=== PATIENT | female | born 1950 | race African-American/Black ===

== ENCOUNTER 2017-02-03 01:06 | Observation (INO) | payer OTHER ==
[~2017-02-03] VITALS: Ht 160 cm; Wt 58.8 kg
[~2017-02-03 01:06] MED LIST: AMBIEN10 MG PO; AMLODIPINE BESY10 MG PO; AMLODIPINE BESYL5 MG PO; ATARAX,VISTARIL50 MG PO; B-121000 MC2 PO; BACTROBAN OINTM22 GM TP; BENADRYL50 MG PO; BENTYL10 MG PO; COLACE100 MG PO; CYCLOBENZAPRINE10 MG PO; CYMBALTA30 MG PO; DAILY VALUE1 EACH PO; DAILY VITAMIN1 EAC8 PO; DICYCLOMINE HCL10 MG PO; DULOXETINE HCL30 MG PO; ENDOCET 5-3251 EACH PO; FIORICET 50-301 EACH PO; FLEXERIL10 MG PO; IBUPROFEN800 MG PO; IMITREX25 MG PO; INDOCIN50 MG PO; LEXAPRO10 MG PO; LOSARTAN POTASS50 MG PO; MEDROL DOSEPAK4 MG PO; MELOXICAM15 MG PO; MIRALAX17 GM PO; MOTRIN800 MG PO; NORCO 5/3251 TABLET PO; NORVASC5 MG PO; OMEPRAZOLE20 M2 PO; OMEPRAZOLE20 MG PO; ONE-A-DAY ESSE1 EAC1 PO; OXYCODONE-APAP1 EAC6 PO; PERCOCET 5/31 TABLET PO; PERCOCET 7.51 TABLET PO; PREDNISONE10 MG PO; PREDNISONE20 MG PO; PREMARIN VAGI42.5 GM VG; REGLAN10 MG PO; REMERON15 M2 PO; SENNA8.6 M1 PO; SERTRALINE HCL25 MG PO; SPIRIVA RESPIMAT4 GM IH; TRAMADOL HCL50 MG PO; TRAZODONE HCL50 MG PO; TYLENOL EXTRA500 MG PO; ULTRAM50 MG PO; VALIUM2 MG PO; VENTOLIN HFA18 GM IH; VITAMIN B12 100MCG PO; XARELTO15 MG PO; XARELTO20 MG PO; ZITHROMAX Z-PA250 MG PO; ZOFRAN4 MG PO; ZOLOFT50 MG PO; Zoloft PO
[2017-02-03 02:07] LABS: EOSINOPHIL (%) 0.3 % (0-5); HEMATOCRIT 38.2 % (36.0-46.0); IMMATURE GRANULOCYTE (%) 0.5 % (0.0-0.7); IMMATURE GRANULOCYTE COUNT 0.1 K/uL; INSTRUMENT ABS NEUTROPHIL CT 11.7 K/uL; LYMPHOCYTE COUNT 0.8 K/uL (1.0-2.8); MCH 27.7 PG (29.0-34.0); MCHC 30.6 G/DL (30.0-36.0); MCV 90.3 FL (83-99); MEAN PLAT.VOLUME 9.9 uM^3 (9.5-12.4); MONOCYTE COUNT 0.4 K/uL (0-0.8); NEUTROPHIL (%) 89.7 % (45-76); NEUTROPHIL COUNT 11.7 K/uL (1.8-6.4); PLATELET COUNT 263 K/uL (156-360); RBC DIS.WIDTH-CV 13.7 % (11.8-14.6); RED BLOOD COUNT 4.23 M/uL (3.80-5.20); WHITE BLOOD COUNT 13.1 K/uL (4.1-10.2)
[2017-02-03 02:15] LABS: ADD MIUA? YES; BILIRUBIN NEGATIVE; BLOOD SMALL; COLOR COLORLESS ((YELLOW)); GLUCOSE (STRIP) >=500; KETONES NEGATIVE; LEUKOCYTES TRACE; NITRITE NEGATIVE; PROTEIN (STRIP) 30; SPECIFIC GRAVITY 1.007 (1.000-1.030); UROBILINOGEN 0.2 MG/DL (0.2-1.0)
[2017-02-03 02:19] LABS: CHLORIDE 100 mEq/L (99-109); POTASSIUM 5.6 mEq/L (3.7-5.4); SODIUM 136 mEq/L (136-147)
[2017-02-03 02:19] LABS: BACTERIA NONE SEEN /HPF; EPITHELIAL CELLS RARE /HPF; HYALINE CASTS 0-5 /LPF; MUCUS NONE SEEN /LPF; RED BLOOD CELLS 0-5 /HPF (0-5); UCUL ADDED? NO; WHITE BLOOD CELLS 0-5 /HPF (0-5)
[2017-02-03 02:22] LABS: GLUCOSE 252 mg/dL (70-99)
[2017-02-03 02:23] LABS: ANION GAP 14 MEQ/L (2-14)
[2017-02-03 02:24] LABS: TOTAL BILIRUBIN 0.3 mg/dL (0.0-1.0)
[2017-02-03 02:25] LABS: ALKALINE PHOSPHATASE 75 IU/L (3-129); GFR ESTIMATE (CALCULATED) 36 mL/min/; SERUM ETHYL ALCOHOL < 10 mg/dL
[2017-02-03 02:25] LABS: ADD MEDTOX COMMENT Y; AMPHETAMINE NEGATIVE (500 ng/mL); BARBITURATES NEGATIVE (200 ng/mL); BENZODIAZEPINES NEGATIVE (150 ng/mL); COCAINE PRESUMPTIVE POSITIVE (150 ng/mL); INTERNAL CONTROLS VALID? YES; METHADONE NEGATIVE (200 ng/mL); METHAMPHETAMINE NEGATIVE (500 ng/mL); OPIATES (MORPHINE) PRESUMPTIVE POSITIVE (100 ng/mL); OXYCODONE NEGATIVE (100 ng/mL); PHENCYCLIDINE NEGATIVE (25 ng/mL); PROPOXYPHENE NEGATIVE (300 ng/mL); THC CANNABINOIDS NEGATIVE (50 ng/mL); TRICYCLIC ANTIDEPRESSANTS NEGATIVE (300 ng/mL)
[2017-02-03 02:27] LABS: UREA NITROGEN (BUN) 22 mg/dL (9-23)
[2017-02-03 02:30] LABS: TROP-I INTERPRETATION NEGATIVE; TROPONIN-I 0.06 ng/mL (0.0-0.30)
[2017-02-03 03:07] LABS: OPIATES QUANTITATIVE VALUE 0 NG/ML
[2017-02-03 04:09] LABS: SALICYLATE < 5.0 MG/DL (15-30)
[2017-02-03 09:20] LABS: MCH 27.4 PG (29.0-34.0); MCHC 30.9 G/DL (30.0-36.0); MCV 88.7 FL (83-99); PLATELET COUNT 221 K/uL (156-360); RBC DIS.WIDTH-CV 13.7 % (11.8-14.6); RBC DIS.WIDTH-SD 44.3 % (39-53); RED BLOOD COUNT 3.72 M/uL (3.80-5.20); WHITE BLOOD COUNT 9.7 K/uL (4.1-10.2)
[2017-02-03] MEDS ORDERED: XARELTO20 MG PO (09:28)
[2017-02-03 09:30] LABS: CHLORIDE 104 mEq/L (99-109); SODIUM 138 mEq/L (136-147)
[2017-02-03 09:32] LABS: GLUCOSE 108 mg/dL (70-99)
[2017-02-03 09:33] LABS: ANION GAP 6 MEQ/L (2-14)
[2017-02-03 09:34] LABS: TOTAL BILIRUBIN 0.3 mg/dL (0.0-1.0)
[2017-02-03 09:35] LABS: ALKALINE PHOSPHATASE 58 IU/L (3-129)
[2017-02-03 09:37] LABS: UREA NITROGEN (BUN) 18 mg/dL (9-23)
[2017-02-03 09:42] LABS: TROP-I INTERPRETATION NEGATIVE; TROPONIN-I 0.23 ng/mL (0.0-0.30)
[2017-02-03 09:43] LABS: GFR ESTIMATE (CALCULATED) 53 mL/min/
[2017-02-03 12:00] LABS: Estimated Average Glucose 111 mg/dL (70-123); HEMOGLOBIN A1c (GLYCOHEMOGLOB) 5.5 % HGB (Below 5.7)
[2017-02-03 14:23] VITALS: BP 117/72
[2017-02-03 16:23] LABS: TROP-I INTERPRETATION NEGATIVE; TROPONIN-I 0.16 ng/mL (0.0-0.30)
[2017-02-03 18:46] LABS: METH RESISTANT S AUREUS PCR POSITIVE (NEGATIVE)
[2017-02-03 18:52] LABS: PROBE CHECK PASS
[2017-02-03 20:00] VITALS: BP 140/80
[2017-02-04] VITALS: BP 123/80
[2017-02-04 07:38] VITALS: BP 107/64
[2017-02-04 09:29] LABS: EOSINOPHIL (%) 4.6 % (0-5); EOSINOPHIL COUNT 0.2 K/uL (0-0.3); IMMATURE GRANULOCYTE (%) 0.2 % (0.0-0.7); INSTRUMENT ABS NEUTROPHIL CT 1.9 K/uL; LYMPHOCYTE COUNT 1.6 K/uL (1.0-2.8); MCH 27.2 PG (29.0-34.0); MCHC 30.6 G/DL (30.0-36.0); MCV 88.8 FL (83-99); MEAN PLAT.VOLUME 10.3 uM^3 (9.5-12.4); MONOCYTE (%) 8.5 % (3-12); MONOCYTE COUNT 0.4 K/uL (0-0.8); NEUTROPHIL (%) 46.9 % (45-76); NEUTROPHIL COUNT 1.9 K/uL (1.8-6.4); PLATELET COUNT 186 K/uL (156-360); RBC DIS.WIDTH-CV 13.8 % (11.8-14.6); RBC DIS.WIDTH-SD 44.5 % (39-53); RED BLOOD COUNT 3.49 M/uL (3.80-5.20)
[2017-02-04 09:30] LABS: WHITE BLOOD COUNT 4.1 K/uL (4.1-10.2)
[2017-02-04 10:00] LABS: ANION GAP 6 MEQ/L (2-14); CHLORIDE 109 MEQ/L (99-109); GFR ESTIMATE (CALCULATED) > 59 mL/min/; GLUCOSE 81 mg/dL (70-99); POTASSIUM 3.8 MEQ/L (3.7-5.4); SAMPLE HEMOLYSIS CHECK 0; SAMPLE ICTERIC CHECK 0; SAMPLE LIPEMIA CHECK 0; SODIUM 139 MEQ/L (136-147); UREA NITROGEN (BUN) 8 mg/dL (9-23)
[2017-02-04 11:33] VITALS: BP 115/75
== END 2017-02-04 13:57 | disposition home or self-care (01) ==
LOC: EME 01:06 → EDOF 05:04 → 5WEST 05:04 → EDOF 05:04 → 5WEST 14:08
PROVIDERS: Emergency Medicine; Internal Medicine
DX: T40.1X1A Poisoning by heroin, accidental (unintentional), initial encounter (principal); T40.4X1A Poisoning by other synthetic narcotics, accidental (unintentional), initial encounter; T40.5X1A Poisoning by cocaine, accidental (unintentional), initial encounter; N17.9 Acute kidney failure, unspecified; Z86.711 Personal history of pulmonary embolism; Z79.01 Long term (current) use of anticoagulants; I10 Essential (primary) hypertension; G89.29 Other chronic pain; K21.9 Gastro-esophageal reflux disease without esophagitis; J44.9 Chronic obstructive pulmonary disease, unspecified; E87.5 Hyperkalemia; R73.9 Hyperglycemia, unspecified; G43.909 Migraine, unspecified, not intractable, without status migrainosus; F31.9 Bipolar disorder, unspecified; F41.1 Generalized anxiety disorder; F11.10 Opioid abuse, uncomplicated; F14.10 Cocaine abuse, uncomplicated; R09.02 Hypoxemia
CPT/HCPCS: 71010; 80048; 80053; 81003; 83036; 84484; 84999; 85025; 85027; 87641; 93005; 94640; 94640 76; 99202; 99281; 99285; G0378; G0480; J2310; J7030

== ENCOUNTER 2017-02-26 22:47 | Inpatient (IN) | payer OTHER ==
[~2017-02-26] VITALS: Ht 160 cm; Wt 52.5 kg
[2017-02-26 23:21] LABS: ADD MIUA? YES; BILIRUBIN NEGATIVE; BLOOD SMALL; COLOR YELLOW ((YELLOW)); GLUCOSE (STRIP) NEGATIVE; KETONES NEGATIVE; LEUKOCYTES LARGE; NITRITE NEGATIVE; PROTEIN (STRIP) NEGATIVE; SPECIFIC GRAVITY 1.006 (1.000-1.030); UROBILINOGEN 0.2 MG/DL (0.2-1.0)
[2017-02-26 23:30] LABS: ADD MEDTOX COMMENT Y; AMPHETAMINE NEGATIVE (500 ng/mL); BARBITURATES NEGATIVE (200 ng/mL); BENZODIAZEPINES NEGATIVE (150 ng/mL); COCAINE PRESUMPTIVE POSITIVE (150 ng/mL); INTERNAL CONTROLS VALID? YES; METHADONE NEGATIVE (200 ng/mL); METHAMPHETAMINE NEGATIVE (500 ng/mL); OPIATES (MORPHINE) NEGATIVE (100 ng/mL); OXYCODONE PRESUMPTIVE POSITIVE (100 ng/mL); PHENCYCLIDINE NEGATIVE (25 ng/mL); PROPOXYPHENE NEGATIVE (300 ng/mL); THC CANNABINOIDS NEGATIVE (50 ng/mL); TRICYCLIC ANTIDEPRESSANTS NEGATIVE (300 ng/mL)
[2017-02-26 23:44] LABS: BACTERIA 2+ /HPF; EPITHELIAL CELLS 2+ /HPF; MUCUS NONE SEEN /LPF; WHITE BLOOD CELLS TNTC /HPF (0-5)
[2017-02-27 00:10] LABS: CHLORIDE 106 mEq/L (99-109); SODIUM 136 mEq/L (136-147)
[2017-02-27 00:11] LABS: GLUCOSE 110 mg/dL (70-99); HEMATOCRIT 27.5 % (36.0-46.0); MCH 27.7 PG (29.0-34.0); MCHC 33.1 G/DL (30.0-36.0); MEAN PLAT.VOLUME 10.7 uM^3 (9.5-12.4); PLATELET COUNT 222 K/uL (156-360); RBC DIS.WIDTH-CV 14.3 % (11.8-14.6); RBC DIS.WIDTH-SD 43.5 % (39-53); RED BLOOD COUNT 3.28 M/uL (3.80-5.20)
[2017-02-27 00:12] LABS: MCV 83.8 FL (83-99); WHITE BLOOD COUNT 12.1 K/uL (4.1-10.2)
[2017-02-27 00:13] LABS: ANION GAP 10 MEQ/L (2-14)
[2017-02-27 00:15] LABS: GFR ESTIMATE (CALCULATED) 21 mL/min/
[2017-02-27 00:16] LABS: UREA NITROGEN (BUN) 52 mg/dL (9-23)
[2017-02-27 05:37] LABS: TROP-I INTERPRETATION NEGATIVE; TROPONIN-I < 0.01 ng/mL (0.0-0.30)
[2017-02-27 05:45] VITALS: BP 138/84
[2017-02-27 07:45] VITALS: BP 144/80
[2017-02-27 08:46] LABS: ANION GAP 9 MEQ/L (2-14); CHLORIDE 109 MEQ/L (99-109); GFR ESTIMATE (CALCULATED) 27 mL/min/; GLUCOSE 113 mg/dL (70-99); POTASSIUM 4.4 MEQ/L (3.7-5.4); SAMPLE HEMOLYSIS CHECK 0; SAMPLE ICTERIC CHECK 0; SAMPLE LIPEMIA CHECK 0; SODIUM 139 MEQ/L (136-147); UREA NITROGEN (BUN) 42 mg/dL (9-23)
[2017-02-27 09:18] LABS: MAGNESIUM 1.6 mg/dl (1.3-2.7); SERUM ETHYL ALCOHOL < 10 mg/dL
[2017-02-27 11:30] VITALS: BP 130/70
[2017-02-27 11:44] LABS: HEMATOCRIT 31.6 % (36.0-46.0); MCH 26.8 PG (29.0-34.0); MCHC 31.3 G/DL (30.0-36.0); MCV 85.6 FL (83-99); MEAN PLAT.VOLUME 10.3 uM^3 (9.5-12.4); PLATELET COUNT 237 K/uL (156-360); RBC DIS.WIDTH-CV 14.4 % (11.8-14.6); RBC DIS.WIDTH-SD 44.6 % (39-53); RED BLOOD COUNT 3.69 M/uL (3.80-5.20); WHITE BLOOD COUNT 9.4 K/uL (4.1-10.2)
[2017-02-27 14:02] LABS: TROP-I INTERPRETATION NEGATIVE; TROPONIN-I < 0.01 ng/mL (0.0-0.30)
[2017-02-27 15:30] VITALS: BP 127/81
[2017-02-27] MEDS ORDERED: LOSARTAN POTASS25 MG PO (16:14)
[2017-02-27] MEDS ORDERED: AMLODIPINE BESYL5 MG PO (16:14)
[2017-02-27] MEDS ORDERED: MELOXICAM15 MG PO (16:15)
[2017-02-27] MEDS ORDERED: ENDOCET 5-3251 EACH PO (16:15)
[2017-02-27] MEDS ORDERED: XARELTO20 MG PO (16:16)
[2017-02-27] MEDS ORDERED: TRAZODONE HCL50 MG PO (16:17)
[2017-02-27] MEDS ORDERED: PERCOCET 5/31 TABLET PO (16:17)
[2017-02-27] MEDS ORDERED: BUTALB-APAP-CA1 EACH PO (16:18)
[2017-02-27 17:36] LABS: TROP-I INTERPRETATION NEGATIVE; TROPONIN-I 0.01 ng/mL (0.0-0.30)
[2017-02-27 19:53] VITALS: BP 126/82
[2017-02-28 01:05] VITALS: BP 130/80
[2017-02-28 05:20] LABS: HEMATOCRIT 27.2 % (36.0-46.0); MCH 27.4 PG (29.0-34.0); MCV 85.8 FL (83-99); MEAN PLAT.VOLUME 10.5 uM^3 (9.5-12.4); PLATELET COUNT 219 K/uL (156-360); RBC DIS.WIDTH-CV 14.4 % (11.8-14.6); RBC DIS.WIDTH-SD 44.5 % (39-53); RED BLOOD COUNT 3.17 M/uL (3.80-5.20); WHITE BLOOD COUNT 8.3 K/uL (4.1-10.2)
[2017-02-28 05:51] LABS: ALKALINE PHOSPHATASE 72 IU/L (3-129); ANION GAP 7 MEQ/L (2-14); CHLORIDE 107 MEQ/L (99-109); GFR ESTIMATE (CALCULATED) 34 mL/min/; GLUCOSE 96 mg/dL (70-99); POTASSIUM 4.1 MEQ/L (3.7-5.4); SAMPLE HEMOLYSIS CHECK 0; SAMPLE ICTERIC CHECK 0; SAMPLE LIPEMIA CHECK 0; SODIUM 139 MEQ/L (136-147); TOTAL BILIRUBIN 0.5 MG/DL (0.0-1.0); UREA NITROGEN (BUN) 27 mg/dL (9-23)
[2017-02-28 07:59] VITALS: BP 152/91
[2017-02-28 11:37] VITALS: BP 136/84
[2017-02-28 13:26] LABS: CK-MB < 0.4 ng/mL (0.0-4.9)
[2017-02-28 13:34] LABS: DIRECT BILIRUBIN 0.2 mg/dL (0.0-0.3)
[2017-02-28 13:36] LABS: CREATINE KINASE < 10 IU/L (1-294); TOTAL CK < 10 IU/L (1-294)
[2017-02-28 15:42] VITALS: BP 130/84
[2017-02-28 21:00] VITALS: BP 122/69
[2017-03-01] VITALS (7 sets, daily range): BP systolic 97–127; BP diastolic 59–83
[2017-03-01 05:48] LABS: EOSINOPHIL (%) 3.7 % (0-5); EOSINOPHIL COUNT 0.3 K/uL (0-0.3); HEMATOCRIT 31.1 % (36.0-46.0); IMMATURE GRANULOCYTE (%) 1.4 % (0.0-0.7); IMMATURE GRANULOCYTE COUNT 0.1 K/uL; INSTRUMENT ABS NEUTROPHIL CT 7.3 K/uL; LYMPHOCYTE COUNT 0.9 K/uL (1.0-2.8); MCH 26.9 PG (29.0-34.0); MCHC 31.8 G/DL (30.0-36.0); MCV 84.5 FL (83-99); MEAN PLAT.VOLUME 10.5 uM^3 (9.5-12.4); MONOCYTE (%) 5.2 % (3-12); MONOCYTE COUNT 0.5 K/uL (0-0.8); NEUTROPHIL (%) 79.3 % (45-76); NEUTROPHIL COUNT 7.3 K/uL (1.8-6.4); PLATELET COUNT 281 K/uL (156-360); RBC DIS.WIDTH-CV 14.2 % (11.8-14.6); RBC DIS.WIDTH-SD 43.4 % (39-53); RED BLOOD COUNT 3.68 M/uL (3.80-5.20); WHITE BLOOD COUNT 9.2 K/uL (4.1-10.2)
[2017-03-01 06:11] LABS: ANION GAP 9 MEQ/L (2-14); CHLORIDE 107 MEQ/L (99-109); GFR ESTIMATE (CALCULATED) 41 mL/min/; GLUCOSE 110 mg/dL (70-99); SAMPLE HEMOLYSIS CHECK 0; SAMPLE ICTERIC CHECK 0; SAMPLE LIPEMIA CHECK 0; SODIUM 138 MEQ/L (136-147); UREA NITROGEN (BUN) 18 mg/dL (9-23)
[2017-03-02 04:07] VITALS: BP 110/60
[2017-03-02 06:24] LABS: ANION GAP 8 MEQ/L (2-14); CHLORIDE 108 MEQ/L (99-109); GFR ESTIMATE (CALCULATED) 41 mL/min/; GLUCOSE 96 mg/dL (70-99); SAMPLE HEMOLYSIS CHECK 0; SAMPLE ICTERIC CHECK 0; SAMPLE LIPEMIA CHECK 0; SODIUM 138 MEQ/L (136-147); UREA NITROGEN (BUN) 21 mg/dL (9-23)
[2017-03-02 08:27] VITALS: BP 119/78
[2017-03-02 11:41] VITALS: BP 112/71
[2017-03-02 15:38] VITALS: BP 117/80
[2017-03-02 19:17] VITALS: BP 131/84
[2017-03-02 23:40] VITALS: BP 105/60
[2017-03-03 03:48] VITALS: BP 124/71
[2017-03-03 05:40] LABS: ANION GAP 8 MEQ/L (2-14); CHLORIDE 108 MEQ/L (99-109); GFR ESTIMATE (CALCULATED) 41 mL/min/; GLUCOSE 98 mg/dL (70-99); POTASSIUM 4.3 MEQ/L (3.7-5.4); SAMPLE HEMOLYSIS CHECK 0; SAMPLE ICTERIC CHECK 0; SAMPLE LIPEMIA CHECK 0; SODIUM 139 MEQ/L (136-147); UREA NITROGEN (BUN) 22 mg/dL (9-23)
[2017-03-03 07:35] VITALS: BP 129/72
[2017-03-03] MEDS ORDERED: DULOXETINE HCL20 MG PO (10:42)
[2017-03-03] MEDS ORDERED: FOLIC ACID1 MG PO (10:42)
[2017-03-03] MEDS ORDERED: Thiamine,Vitamin B1 PO (10:42)
[2017-03-03 11:19] VITALS: BP 106/69
[2017-03-03] MEDS ORDERED: XARELTO20 MG PO (14:19)
== END 2017-03-03 15:15 | disposition home or self-care (01) | DRG 917 ==
LOC: EME 22:47 → 3EAST 02-27 03:53 → EDOF 02-27 03:53 → 3EAST 02-27 05:27
PROVIDERS: Emergency Medicine; Internal Medicine; Internal Medicine Nephrology; Physician Assistant
DX: T40.2X1A Poisoning by other opioids, accidental (unintentional), initial encounter (principal); G93.40 Encephalopathy, unspecified; N17.9 Acute kidney failure, unspecified; T40.5X1A Poisoning by cocaine, accidental (unintentional), initial encounter; E86.0 Dehydration; F10.239 Alcohol dependence with withdrawal, unspecified; F11.20 Opioid dependence, uncomplicated; F14.10 Cocaine abuse, uncomplicated; R82.99 Other abnormal findings in urine; I10 Essential (primary) hypertension; K21.9 Gastro-esophageal reflux disease without esophagitis; J44.9 Chronic obstructive pulmonary disease, unspecified; F31.9 Bipolar disorder, unspecified; G89.29 Other chronic pain; M54.5 Low back pain; F17.200 Nicotine dependence, unspecified, uncomplicated; Z79.01 Long term (current) use of anticoagulants; Z86.711 Personal history of pulmonary embolism
CPT/HCPCS: 80048; 80053; 80076; 81003; 82248; 82550; 82550 91; 82553; 83735; 84484; 84999; 85025; 85027; 87086; 93005; 94640; 94640 76; 97530 GP; 99202; 99281; 99285; G0480; J0696; J2310; J7030; J7040; J7050; J7120